=== PATIENT | male | born 2000 | race Caucasian/White ===

== ENCOUNTER 2023-07-20 15:08 | Emergency (ER) | payer OTHER ==
[2023-07-20 15:14] VITALS: RESP 18; TEMP 98.2
[2023-07-20] MEDS: MORPHINE SULFATE 4 MG/ML SYRINGE IV STA (15:44)
[2023-07-20] MEDS: DIPH,PERTUS(ACELL)TETVAC-LF 0.5 ML VIAL IM ONE (15:57)
--- NOTE | 2023-07-20 15:59 | XR ---
EXAMINATION TYPE: XR hand complete RT DATE OF EXAM: 07/20/2023 CLINICAL HISTORY: pain TECHNIQUE: Frontal, lateral and oblique images of the right wrist are obtained. COMPARISON: None. FINDINGS: There is no acute fracture/dislocation evident. The joint spaces appear within normal limits. Soft t issue laceration adjacent to the ulna without radiopaque foreign body. IMPRESSION: There is no acute fracture or dislocation seen. ICD 10 NO FRACTURE, INITIAL EVALUATION
[2023-07-20] MEDS: LIDOCAINE 1%-EPI 1:100,000 20 ML VIAL SQ STA (16:40)
[2023-07-20] MEDS: BACITRACIN OINT 1 EACH PACKET TOPICAL ONE (16:40)
[2023-07-20] MEDS: LIDOCAINE 1% INJ 10MG/ML (20 ML MDV) SQ ONE (16:40)
--- NOTE | 2023-07-20 17:12 | ED ---
Upper Extremity HPI - General Chief Complaint: Extremity Injury, Upper Stated Complaint: R hand injury/Lac Time Seen by Provider: 07/20/23 15:30 Source: patient Mode of arrival: ambulatory Limitations: no limitations - History of Present Illness Initial Comments: This 22-year-old male presents with a complaint of a laceration to his right hand. He states that he was trying to clear a Rototiller that was stopped and once he cleared it then the blade cut him. This occurred approximately 1.5 hours prior to arrival. He presents with a laceration to the dorsal aspect of the right hand. - Related Data Home Medications Medication Instructions Recorded Confirmed HYDROcodone/APAP 5-325MG [[place] 1 - 2 tab PO Q6HR PRN 08/01/15 08/01/15 5-325] Previous Rx's Medication Instructions Recorded Cephalexin [Keflex] 500 mg PO Q8HR #21 cap 07/20/23 Ibuprofen [Motrin] 800 mg PO Q8H PRN #20 tab 07/20/23 Allergies Allergy/AdvReac Type Severity Reaction Status Date / Time No Known Allergies Allergy Verified 07/20/23 15:13 Review of Systems ROS Statement: Those systems with pertinent positive or pertinent negative responses have been documented in the HPI. ROS Other: All systems not noted in ROS Statement are negative. Past Medical History Past Medical History: No Reported History History of Any Multi-Drug Resistant Organisms: None Reported Past Surgical History: No Surgical Hx Reported Past Psychological History: No Psychological Hx Reported Smoking Status: Current every day smoker Past Alcohol Use History: Rare Past Drug Use History: Marijuana General Exam Limitations: no limitations Course Vital Signs 07/20/23 07/20/23 07/20/23 15:10 15:17 15:48 Temperature 98.2 F Pulse Rate 83 79 71 Respiratory 18 18 18 Rate Blood Pressure 158/103 166/111 O2 Sat by Pulse 100 100 98 Oximetry 07/20/23 07/20/23 16:00 17:07 Temperature Pulse Rate 76 70 Respiratory 18 18 Rate Blood Pressure 144/104 123/71 O2 Sat by Pulse 100 98 Oximetry Disposition Clinical Impression: Hand laceration, Tendon laceration Disposition: HOME SELF-CARE Condition: Good Instructions (If sedation given, give patient instructions): Care For Your Stit ches (ED), Laceration (ED), Tendon Laceration (ED) Additional Instructions: You also may use tylenol if needed for additional pain. Please keep splint clean and dry. You have an extensor tendon laceration of your hand that still needs to be repaired by orthopedic surgery. Prescriptions: Cephalexin [Keflex] 500 mg PO Q8HR #21 cap Ibuprofen [Motrin] 800 mg PO Q8H PRN #20 tab PRN Reason: Pain Is patient prescribed a controlled substance at d/c from ED?: No Referrals: None,Stated [Primary Care Provider] - 1-2 days Vidal Armstrong DO [Doctor of Osteopathic Medicine] - 07/21/23 Time of Disposition: 17:09
[2023-07-20 17:42] VITALS: BP 123/71; PULSE 70
--- NOTE | 2023-07-20 19:32 | ED ---
Trauma HPI - General Chief Complaint: Extremity Injury, Upper Stated Complaint: R hand injury/Lac Time Seen by Provider: 07/20/23 15:30 Source: patient Mode of arrival: ambulatory Limitations: no limitations - History of Present Illness Initial Comments: This 22-year-old male presents with complaint of injury to his right hand. He states that he was trying to clear out a Rototiller when the blade started and cut him on the dorsal aspect of his right hand. He states that this occurred approximate 1.5 hours prior to arrival. He denies any paresthesias to his fingers. He has been able to move all of his digits without any difficulty. It is primarily over the fourth metacarpal region. He complains of some minimal to moderate pain. He is unsure of his last tetanus prophylaxis. No other injuries. No other complaints or modifying factors. - Related Data Home Medications Medication Instructions Recorded Confirmed HYDROcodone/APAP 5-325MG [[place] 1 - 2 tab PO Q6HR PRN 08/01/15 08/01/15 5-325] Previous Rx's Medication Instructions Recorded Cephalexin [Keflex] 500 mg PO Q8HR #21 cap 07/20/23 Ibuprofen [Motrin] 800 mg PO Q8H PRN #20 tab 07/20/23 Allergies Allergy/AdvReac Type Severity Reaction Status Date / Time No Known Allergies Allergy Verified 07/20/23 15:13 Review of Systems ROS Statement: Those systems with pertinent positive or pertinent negative responses have been documented in the HPI. ROS Other: All systems not noted in ROS Statement are negative. Past Medical History Past Medical History: No Reported History History of Any Multi-Drug Resistant Organisms: None Reported Past Surgical History: No Surgical Hx Reported Past Psychological History: No Psychological Hx Reported Smoking Status: Current every day smoker Past Alcohol Use History: Rare Past Drug Use History: Marijuana General Exam Limitations: no limitations Head exam: Present: atraumatic, normocephalic Extremities exam: Present: other (There is a 12 cm laceration noted over the dorsal aspect of the right hand near the distal portion of the right fourth medical carpal which extends approximately into the wrist region. This is fairly deep and does appear to involve tendon. It appears to have splayed over the top portion of the ext) Neurological exam: Present: alert, altered, oriented X3. Absent: motor sensory deficit Psychiatric exam: Present: normal affect, normal mood Skin exam: Absent: rash Course Vital Signs 07/20/23 07/20/23 07/20/23 15:10 15:17 15:48 Temperature 98.2 F Pulse Rate 83 79 71 Respiratory 18 18 18 Rate Blood Pressure 158/103 166/111 O2 Sat by Pulse 100 100 98 Oximetry 07/20/23 07/20/23 16:00 17:07 Temperature Pulse Rate 76 70 Respiratory 18 18 Rate Blood Pressure 144/104 123/71 O2 Sat by Pulse 100 98 Oximetry Medical Decision Making - Medical Decision Making The patient was seen and examined. IV is established. He receives Ancef and morphine intravenously. He also receives a tetanus prophylaxis. X-ray was taken of the right hand and no foreign bodies or fractures are identified. Case is discussed with orthopedic physician appeals assistant and she recommends closing wound and having patient [facility]. Dr. Amaya is on-call. The wound was anesthetized with lidocaine with bupivacaine, approximately 10 mL. Excellent anesthesia is identified. The wound is thoroughly cleansed. The wound also was thoroughly irrigated. The wound was closed with a total of 23 simple interrupted 5-0 nylon sutures. No complications were encountered. The patient's wound was then dressed with antibiotic ointment, Adaptic, 4 x 4's, and Kerlix. A 3 inch Ortho-Glass custom molded splint was placed by myself on the volar aspect and put in place with an Jose Miguel wrap. Excellent post-splint neurovascular status is identified. While I was closing the wound, patient's mother did call and make an appointment for the orthopedic doctor for tomorrow at approximately 3:15 PM. It is felt as though he does have a tendon laceration that still needs to be addressed and he potentially may need operative repair pending orthopedics opinion. Patient is covered with Motrin 800 as well as Keflex for pain and antibiotic/infection prophylaxis. Return parameters are discussed. Was pt. sent in by a medical professional or institution ([facility], [employer]ENT, urgent care, hospital, or jail...) When possible be specific @ -No Did you speak to anyone other than the patient for history (EMS, parent, family, police, friend...)? What history was obtained from this source @ -Patient's friend as well as mother are present and help with history. Did you review nursing and triage notes (agree or disagree)? Why? @ -I reviewed and agree with nursing and triage notes Were old charts reviewed (outside hosp., previous admission, EMS record, old EKG, old radiological studies, urgent care reports/EKG's, jail records)? Report findings @ -No old charts were reviewed Differential Diagnosis (chest pain, altered mental status, abdominal pain women, abdominal pain men, vaginal bleeding, weakness, fever, dyspnea, syncope, headache, dizziness, GI bleed, back pain, seizure, CVA, palpatations, mental health, musculoskeletal)? @ -Tendon laceration, fracture, laceration Repair Note Location: Right hand Anesthesia: Lidocaine and bupivacaine Laceration length/type: 12 cm Suture type/size: 5-0 nylon Number of sutures: 23 The wound was cleansed with normal saline irrigation under pressure. Wound exploration reveals no muscle, tendon, nerve injury or foreign body. Wound was repaired under sterile technique. Sterile dressing was applied. Patient tolerated the procedure well. Patient is neurovascularly intact. They are to keep the wound clean and dry with antibiotic ointment and minimize sun exposure. If they develop any fever, purulent discharge, increasing redness, pain or swelling they are to return immediately to the ED for re-evaluation for wound infection. EKG interpreted by me (3pts min.). @ -None X-rays interpreted by me (1pt min.). @ -None done CT interpreted by me (1pt min.). @ -None done U/S interpreted by me (1pt. min.). @ -None done What testing was considered but not performed or refused? (CT, X-rays, U/S, labs)? Why? @ -None What meds were considered but not given or refused? Why? @ -None Did you discuss the management of the patient with other professionals (professionals i.e. , PA, [employer] FIELD AGENT, lab, RT, psych nurse, director social service, remarketing manager, teacher, mobile patrol officer, case consultant)? Give summary @ -Case is discussed with the orthopedic physician appeals assistant. She also is forwarded a picture of the wound prior to closure showing the tendon laceration. Was smoking cessation discussed for >3mins.? @ -No Was critical care preformed (if so, how long)? @ -No Were there social determinants of health that impacted care today? How? (Homelessness, low income, unemployed, alcoholism, drug addiction, transportation, low edu. Level, literacy, decrease access to med. care, [facility] [facility], rehab)? @ -No Was there de-escalation of care discussed even if they declined (Discuss DNR or withdrawal of care, Hospice)? DNR status @ -No What co-morbidities impacted this encounter? (DM, HTN, Smoking, COPD, CAD, Cancer, CVA, ARF, Chemo, Hep., AIDS, mental health diagnosis, sleep apnea, morbid obesity)? @ -Tobacco abuse Was patient admitted / discharged? Hospital course, mention meds given and route, prescriptions, significant lab abnormalities, going to OR and other per tinent info. @ -Patient is discharged Undiagnosed new problem with uncertain prognosis? @ -No Drug Therapy requiring intensive monitoring for toxicity (Heparin, Nitro, Insulin, Cardizem)? @ -No Were any procedures done? @ -Laceration repair, splint application Diagnosis/symptom? @ -Right hand laceration, right hand extensor tendon laceration Acute, or Chronic, or Acute on Chronic? @ -Acute Uncomplicated (without systemic symptoms) or Complicated (systemic symptoms)? @ -Uncomplicated Side effects of treatment? @ -No Exacerbation, Progression, or Severe Exacerbation? @ -No Poses a threat to life or bodily function? How? (Chest pain, [place], [place], pneumonia, PE, COPD, DKA, ARF, appy, cholecystitis, CVA, Diverticulitis, Homicidal, Suicidal, threat to staff... and all critical care pts) @ -No Disposition Clinical Impression: Hand laceration, Tendon laceration Disposition: HOME SELF-CARE Condition: Good Instructions (If sedation given, give patient instructions): Care For Your Stitches (ED), Laceration (ED), Tendon Laceration (ED) Additional Instructions: You also may use tylenol if needed for additional pain. Please keep splint clean and dry. You have an extensor tendon laceration of your hand that still needs to be repaired by orthopedic surgery. Prescriptions: Cephalexin [Keflex] 500 mg PO Q8HR #21 cap Ibuprofen [Motrin] 800 mg PO Q8H PRN #20 tab PRN Reason: Pain Is patient prescribed a controlled substance at d/c from ED?: No Referrals: None,Stated [Primary Care Provider] - 1-2 days Vidal Armstrong, [Doctor of Osteopathic Medicine] - 07/21/23 Time of Disposition: 17:20
== END 2023-07-20 17:19 | disposition home or self-care (01) ==
LOC: EC 15:08
DX: S66.921A Laceration of unspecified muscle, fascia and tendon at wrist and hand level, right hand, initial encounter (principal); F17.200 Nicotine dependence, unspecified, uncomplicated; Z23 Encounter for immunization
CPT/HCPCS: 73130; 90715; 12004; 99284; 96374; 90471; J2270; J0690; J2001